=== PATIENT | male | born 1955 | race Caucasian/White ===

== ENCOUNTER 2021-10-23 14:57 | Outpatient (RCR) | payer SELFPAY ==
--- NOTE | 2021-10-23 16:41 | PT.OPEX ---
PT [place] [facility] Eval PT [facility] Outpatient Eval Start: 10/23/21 15:05 Freq: Status: Active Protocol: Document 10/23/21 15:08 DEMARCO (Rec: 10/23/21 15:16 Surendra [id number]) E-signed By Terese Buckner DPT Physical Therapy Outpatient Evaluation Insurance Information Recert Due Date 01/01/22 Insurance Name Other; See Comments Insurance Information/Comments Medical Diagnosis R knee pain, PF OA, MCL sprain Treating Diagnosis R knee pain, impaired R knee ROM, R knee/LE weakness with R knee instability and lateral patellar tracking, limited tolerance for extended standing/walking/kneeling/ stairs Subjective Subjective Patient c/o R knee pain, gradual onset about 2 months ago while doing some remodel work. He was able to decrease activity and rest with some improvement but then flared back up with activity. Pain rated 3/10. He is using aleve , tylenol, advil for pain. Some icing, about 1x/day lately. Patient denies any prior surgeries or issues with R knee, gradual wear and tear with physical work over the years. He reports difficulty walking when pain is flared up - last big flare up was about a week ago, feeling a little better the last several days but ongoing pain and stiffness . Initial steps are stiff, loosens up some with activity. Increased pain with flexion, kneeling, stairs, extended standing/walking. Date of Last Physician Visit 10/19/21 Assessment Assessment/Impression Patient is a 65 year old male with R knee pain, impaired R knee ROM, R knee/LE weakness with R knee instability and lateral patellar tracking, limited tolerance for extended standing/walking/kneeling/ stairs. Pain rated 3/10. Patient tight along R ITB, tender with palpation R ITB and R lateral patella with lateral patellar tracking noted. Also tenderness/pain R medial knee and R posterior knee. R knee ROM 0-0-120. L knee ROM 0-0-135 degrees. Gait is slow, limping, antalgic, stiff but loosens up some with time. Patient with core/hip/glut/quad weakness noted with exercises and with PF/knee pain. Sleep is interrupted. Patient would benefit from skilled PT for pain/sx management, improved R Knee ROM, improved core/hip/ glut/quad strength, improved gait/balance/proprioception, and establishment of HEP. Plan of Care Rehabilitation Potential Good Physical Therapy Goals 1. Decrease/maintain R knee pain at less than/equal to 3/ 10 with daily/work activities and with the progression of PT activities over the next 4-6 weeks. 2. Decrease R knee pain so that the patient is able to sleep through the night on a regular basis within 3-4 weeks. 3. Improve core/hip/glut/quad strength over the next 8-10 weeks for improved patellar position /tracking, decreased stress to knee joint, and decreased knee pain with daily/work activities. 4. Improve balance/ proprioception within 8-10 weeks for improved stability with static/dynamic activities , improved gait mechanics with daily/work activities, decreased stress to knee joint, and decreased knee pain with daily/work activities. 5. Patient will be I with HEP within 10 weeks for progression toward above goals, ongoing self management of pain/sx, ongoing self improvements in core/hip/glut/LE strength, and for return to PLF including daily/work activities without flare up of pain. Coordination/Communication With Referral Source Treatment Plan/Direct Interventions Manual Therapy,Therapeutic Exercises Frequency/Duration 1x/week Patient Will Be Discharged From Therapy Completion of LTG(s),Skills Plateau,Independent w/HEP, Independently Progressing Evaluation Billing Untimed Code Treatment Minutes 18 Complexity Moderate Certification Information Initial Certification Date 10/23/21 Ending Certification Date 01/01/22 Provider Signature Shows Agreement With POC & Medical Necessity Physician Comment/Change Comment or Changes Physician NPI Number #
== END 2022-01-04 14:18 | disposition home or self-care (01) ==
PROVIDERS: PCP Family Medicine; Visit Provider Physician Assistant Surgical
DX: M25.561 Pain in right knee (principal); Z51.89 Encounter for other specified aftercare
CPT/HCPCS: 97110; 97140; 97162

== ENCOUNTER 2022-11-24 10:00 | Outpatient (RCR) | payer MEDICARE, OTHER, SELFPAY | END 2022-11-24 11:05 | disposition home or self-care (01) | PROVIDERS: PCP Family Medicine | DX: Z98.890 Other specified postprocedural states (principal); Z51.89 Encounter for other specified aftercare | CPT/HCPCS: 97110; 97140; 97162; 97164 ==